=== PATIENT | male | born 1980 | race Caucasian/White ===

== ENCOUNTER 2018-09-23 07:49 | Outpatient (CLI) | payer OTHER ==
--- NOTE | 2018-09-23 11:56 | CARDIAC PROCEDURE NOTE ---
DATE OF SERVICE: 09/23/2018 Physician: Beth Loza MD, [facility] INDICATIONS: Chest pain. CARDIAC RISK FACTORS: Early history of heart disease in the family. SUMMARY: After signing informed consent, the patient underwent a Elias-protocol treadmill stress test. Resting heart rate: 85, peak heart rate: 162 (88% predicted maximum heart rate for age). Resting blood pressure: 140/80, peak blood pressure: 165/78. The patient exercised for 9 minutes and 48 seconds on a Elias protocol treadmill stress test. The patient achieved a peak heart rate of 162 (88% PMHR), and 11.5 METs. The patient had minimal shortness of breath and none of his typical chest pain. He did complain of chest "tightness," which is not his chest pain symptom normally. RESTING ELECTROCARDIOGRAM: Normal sinus rhythm and within normal limits. PEAK ELECTROCARDIOGRAM: New vertical QRS axis and T-wave flattening in leads III and aVF. IMPRESSION 1. Good exercise tolerance. 2. Nonspecific changes, borderline abnormal for ischemia by EKG criteria, on the Elias-protocol stress test at an adequate level of stress. 3. No imaging was ordered with this test. 4. Consider a complete Echocardiogram for further evaluation, and it could be rechecked as a Stress Echocardiogram with full Doppler examination, if needed. cc: Candelaria Mata MD TD: 09/23/2018 11:47 MTDD
== END 2018-09-23 07:50 | disposition home or self-care (01) ==
LOC: DI 07:49
PROVIDERS: ATTEND Internal Medicine
DX: R07.9 Chest pain, unspecified (principal); R94.31 Abnormal electrocardiogram [ECG] [EKG]
CPT/HCPCS: 93017